=== PATIENT | female | born 1985 | race Caucasian/White ===

== ENCOUNTER 2023-07-04 18:37 | Emergency (ER) | payer OTHER, SELFPAY ==
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
[2023-07-04 18:51] VITALS: BP 116/67; PULSE 70; RESP 18; TEMP 36.6; O2SAT 96
[2023-07-04 19:31] VITALS: BP 103/57; PULSE 66; RESP 15; TEMP 36.5; O2SAT 98
[2023-07-04] MEDS: ONDANSETRON INJ 4 MG/2 ML VIAL IV PUSH (20:10)
[2023-07-04] MEDS: MORPHINE SULFATE (*CRX) 4 MG/ML INJ IV PUSH (20:11)
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
[2023-07-04 21:50] VITALS: BP 97/59; PULSE 60; RESP 13; O2SAT 97
[2023-07-04] MEDS: HYDROmorphone HCL INJ (*CRX) 1 MG/ML SYR 0.5 MG IV PUSH (22:06)
[2023-07-04 23:24] VITALS: BP 122/75; PULSE 87; RESP 15; TEMP 36.6; O2SAT 100
== END 2023-07-04 23:26 | disposition home or self-care (01) ==
PROVIDERS: Emergency Provider Emergency Medicine
DX: S52.572A Other intraarticular fracture of lower end of left radius, initial encounter for closed fracture (principal); S52.612A Displaced fracture of left ulna styloid process, initial encounter for closed fracture; S02.32XA Fracture of orbital floor, left side, initial encounter for closed fracture; S40.811A Abrasion of right upper arm, initial encounter; S80.212A Abrasion, left knee, initial encounter; S01.81XA Laceration without foreign body of other part of head, initial encounter; S01.112A Laceration without foreign body of left eyelid and periocular area, initial encounter; V00.831A Fall from motorized mobility scooter, initial encounter
CPT/HCPCS: 12011; 70450; 70486; 72125; 73110; 96374; 96375; 99284; A4565; J1170; J2270; J2405